=== PATIENT | male | born 1960 | race African-American/Black ===

== ENCOUNTER 2017-06-26 15:38 | Emergency (ER) | payer OTHER ==
[~2017-06-26] VITALS: Ht 175.3 cm; Wt 55.3 kg
[2017-06-26 15:44] VITALS: BP 158/89
== END 2017-06-26 16:34 | disposition home or self-care (01) ==
LOC: ED 16:28
DX: L03.116 Cellulitis of left lower limb (principal); B35.3 Tinea pedis
CPT/HCPCS: 99283